=== PATIENT | female | born 1990 | race African-American/Black ===

== ENCOUNTER 2018-02-23 08:56 | Inpatient (IN) ==
[2018-02-23] MEDS ORDERED: Naloxone 0.4 MG/ML INJ IVP PRN (09:49)
[2018-02-23] MEDS ORDERED: *HR* Nalbuphine 10 MG/ML AMPUL IVP PRN (09:49)
[2018-02-23] MEDS ORDERED: Famotidine 20 MG/2 ML VIAL IVP PRN (09:49)
[2018-02-23] MEDS ORDERED: miSOPROStol 25 MCG TABLET PO PRN (10:51)
[2018-02-23 11:23] LABS: Basophils % 0.1 %; Eosinophils # 0.1 K/mcL (0.0-0.6); Eosinophils % 0.7 %; Hematocrit 36.5 % (35.3-44.9); Hemoglobin 12.3 g/dL (11.5-15.4); Immature Granulocytes % 0.6 % (0-4); Lymphocytes # 1.9 K/mcL (0.6-4.6); Lymphocytes % 21.3 %; Mean Corpuscular HGB Conc 33.7 g/dL (31.6-35.5); Mean Corpuscular Hemoglobin 29.7 pg (28.0-33.3); Mean Corpuscular Volume 88.2 fL (83.0-100.0); Mean Platelet Volume 9.7 fL (9.4-12.4); Monocytes # 0.6 K/mcL (0.0-1.3); Monocytes % 6.2 %; Neutrophils # 6.4 K/mcL (1.6-8.9); Platelet Count 259 K/mcL (140-400); Red Blood Count 4.14 M/mcL (3.82-4.97); Red Cell Distribution Width 13.9 % (11.5-14.5); Segmented Neutrophils % 71.1 %
[2018-02-23 11:47] LABS: Amphetamine Screen,Urine Negative ng/mL (Cutoff=1000); Barbiturate Screen,Urine Negative ng/mL (Cutoff=200); Benzodiazepines Screen,Urine Negative ng/mL (Cutoff=200); Cannabinoid Screen,Urine Negative ng/mL (Cutoff = 50); Cocaine Screen,Urine Negative ng/mL (Cutoff= 300); Opiate Screen,Urine Negative ng/mL (Cutoff=300); Phencyclidine Screen,Urine Negative ng/mL (Cutoff=25)
--- NOTE | 2018-02-23 12:08 | OB/GYN History & Physical ---
Date of Encounter: 02/23/18 Time of Encounter: 12:05 Assessment and Plan (1) 39 weeks gestation of Current visit: Yes Status: Acute Term IUP SROM GBS negative Cytotec Nubain/Epidural per patient request Anticipate vaginal delivery Desires tubal ligation (2) Spontaneous rupture of amniotic membranes Current visit: Yes Status: Acute History of Present Illness Chief complaint: Leaking fluid HPI: Ms. Cisneros is a 27 year old female at 39 weeks 0 days gestation admitted labor and delivery for SROM at 0700. Denies vaginal bleeding, states baby moving well. She is having mild, irregular ctxs. 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 Currently taking Acyclovir to suppress HSV, no outbreak at present time. Denies JOSHI, visual disturbances and epigastric pain. Past OB history #1 at 40 weeks, 7 pounds; #2 SAB; # 3preterm at 35 weeks 5 pounds; #4 Ectopic; #5 IAB; #6 current with no complications per patient. Labs: O positive GBS negative HIV negative RPR Non reactive HBsAg negative Rubella immune Varicella immune Past Med Surg Social Fam HX - Past Medical History Medical history: other Additional medical history: ulcerative colitis Psychiatric history: no psych history - Past Surgical History Surgical History: non-contributory Additional surgical history: eye surgery as a child - Social History Smoking Status: Never smoker Smokeless Tobacco Status: No Alcohol use: none Drug use: none - Family History Mother Name: Kaela Noble Family Respiratory Disorders: Yes ([facility]) Obstetrical History - Pregnancies : 6 Para: 1 Term: 1 : 1 Ab's: 3 Livin Medications and Allergies Mesalamine [Lialda] 1.2 gm PO DAILY 09/24/16 [History] Vit #108/Iron/FA [ One Tablet] 1 each PO DAILY 09/24/16 [ History] Acyclovir [Zovirax] 400 mg PO DAILY 02/23/18 [History] 3 Allergy/AdvReac Type Severity Reaction Status Date / Time No Known Allergies Allergy Verified 12/13/17 14:02 Exam - Constitutional Constitutional: well developed, well nourished, no acute distress - HEENT HEENT: Normocephaly - Neck Neck exam: full ROM, normal inspection, supple - Lungs Respiratory exam: CTAB - Cardiovascular Cardiovascular exam: RRR - Abdomen Abdomen: Present: bowel sounds normal, gravid, non tender - Extremities Extremities exam: full ROM, normal inspection, radial pulses palpable and symmetrical Deep Tendon Reflex Grade: 2+ Normal - Cervix Dilation: 2 (2-3 cm) Effacement: 70 Station: -1 (VE per RN. Grossly ruptured, clear fluid.) Results Result Diagrams: 02/23/18 10:32 All other labs normal. - VTE Reasons for not Prescribing Prophylaxis: Treatment not Indicated - Low risk for VTE
[2018-02-23] MEDS ORDERED: Ringers Solution, Lactated 1,000 ML ONE ×4 (12:12→20:31)
[2018-02-23] MEDS ORDERED: Oxytocin 20 units/ LR 1000 mL 20 UNIT/1,000 ML BAG IVC SCH (16:00)
[2018-02-23] MEDS ORDERED: Oxytocin 20 units/ LR 1000 mL 20 UNIT/1,000 ML BAG IVC ONE (16:12)
--- NOTE | 2018-02-23 17:05 | Anesthesia Evaluation PreOp ---
Date of Encounter: 02/23/18 Time of Encounter: 17:03 - Past History Planned Operation: mireya Cardiac History: Denies any Significant Hx Pulmonary History: Denies Any Significant HX [employer] History: Denies Any Significant HX Other Medical History: Other (HSV, ulcerative colitis) Anesthesia History: No Prior Anesthetic Complications, Past Anesthesia (eye surgery) : Yes (39 weeks, ) Alcohol Use: none Drug use: none Medications and Allergies Mesalamine [Lialda] 1.2 gm PO DAILY 09/24/16 [History] Vit #108/Iron/FA [ One Tablet] 1 each PO DAILY 09/24/16 [ History] Acyclovir [Zovirax] 400 mg PO DAILY 02/23/18 [History] 3 Allergy/AdvReac Type Severity Reaction Status Date / Time No Known Allergies Allergy Verified 12/13/17 14:02 - Meds/Allergy Pre-op Review Medications Reviewed: Yes Allergies Reviewed: Yes Beta Blockers on Current Med List: No Anesthesia Results - Labs 02/23/18 10:32 Anesthesia Exam O2 Sat Height 1.5 m Weight 73.6 kg bp 111/62 Height: 59 Weight: 73 - HEENT Pupil (Motor): Pupils equal Mallampati: II Teeth: Normal Oral Opening: Greater than 3 - [employer] LOC: Oriented [employer] Motor: Normal RUE, Normal LUE, Normal RLE, Normal LLE, Normal Face [employer] Sensory: Normal: RUE, LUE, RLE, LLE, Face - Cardiac Rhythm: Regular Murmur: None JVD: No Carotid Bruit: No - Pulmonary Breath Sounds: bilateral Clear Respiratory Effort: Symmetrical Anesthesia Assess/Plan ASA Score: 2 Modified [place] Scale for Level of Consciousness: Cooperative, oriented, and tranquil Anesthetic Plan: Regional
[2018-02-23] MEDS ORDERED: *HR* FentaNYL (PF) 100 MCG/2 ML VIAL EP ONE (17:49)
[2018-02-23] MEDS ORDERED: EPHEDrine 50 MG/ML VIAL IVP PRN (17:49)
[2018-02-23] MEDS ORDERED: *HR* Ropivacaine/PF 0.2% 20 ML VIAL EP ONE (17:49)
[2018-02-23] MEDS ORDERED: Epidural Premix (fent/bupiv) 110 ML EP ONE (17:55)
[2018-02-23] MEDS ORDERED: Epidural Premix (fent/bupiv) 110 ML EP SCH (18:00)
[2018-02-23] MEDS ORDERED: *HR* Propofol 200 MG/20 ML VIAL IVP ONE (19:08)
[2018-02-23] MEDS ORDERED: *HR* FentaNYL (PF) 100 MCG/2 ML VIAL ONE (19:08)
[2018-02-23] MEDS ORDERED: *HR* Midazolam HCl 2 MG/2 ML VIAL ONE (19:08)
[2018-02-23] MEDS ORDERED: *HR* Oxytocin 10 UNIT/ML VIAL IM ONE (19:08)
[2018-02-23] MEDS ORDERED: *HR* Promethazine 25 MG/ML VIAL IVP PRN (19:26)
[2018-02-23] MEDS ORDERED: *HR* OxyCODONE Immed Rel 5 MG TABLET PO PRN (19:26)
[2018-02-23] MEDS ORDERED: Morphine Sulfate/PF 5mg/10mL Vial ONE (19:30)
--- NOTE | 2018-02-23 19:49 | OB/GYN Procedure Note ---
Section - Date of procedure: 02/23/18 Preop diagnosis: category 3 FHT tracing Post-op diagnosis: same Procedure: section, primary low transverse Surgeon: Jai Johnson Blood Loss: 100 Was there an operations and intelligence assistant present: Yes Voice Network Administrator: Chad Monsivais Carbonizer: Jimmy Ye Anesthesia Type: Epidural section complications: none Disposition: L&D Recovery Room Specimens: Placenta, Cord blood - (s) Infant A Delivery Date: 02/23/18 Infant Delivery Time: 18:55 Presentation: vertex Position: OA Gender: Female Viability: Viable Pounds: 5 Ounces: 15 Gram Weight: 2700 kg at 1 minute: 8 at 5 minutes: 9 - Narrative Narrative: The patient was brought to the operating room with satisfactory epidural anesthesia. The abdomen was prepped with betadine and then draped in sterile fashion. A Pfannenstiel incision was made and carried sharply down to the level of the fascia. The fascia was incised transversely and dissected away from the underlying rectus muscles. With blunt dissection, the rectus muscles were divided in midline. The peritoneum was entered bluntly and the uterus was revealed. A bladder retractor was placed to protect the bladder. A transverse incision was made across the lower uterine segment. The incision was manually extended. The 's head was pulled up and delivered easily as were the shoulders and body. The mouth and oropharynx were suctioned. The cord was clamped and cut. The infant was passed off to the waiting nurses in satisfactory condition. APGARS 8/9. The placenta was extracted completely and found to be intact. The uterus was explored and found to be empty. The uterus was delivered through the abdominal incision and massaged vigorously. Intravenous Pitocin was administered. A running locking stitch of 0 Vicryl was used to close the incision with adequate hemostasis. Secondary running locking stitch was placed for extra strength to the wound. The uterus was returned to its proper anatomic position in the abdomen. The fascia was closed with a simple running stitch of 0 vicryl. The skin was closed with running subcuticular stitch of 4-0 vicryl. The patient was brought to the recovery room in satisfactory condition. There were no complications. There was 100 cc of blood loss. All sponge, needle, and instrument counts were reported to be correct.
[2018-02-23] MEDS ORDERED: Ketorolac 30 MG/ML VIAL IVP ONE (22:54)
[2018-02-23] MEDS: Piperacillin/Tazobactam 3.375 GM in 0.9 % Sodium Chloride Mini Bag 100 ML IVPB SCH (23:10)
[2018-02-24] MEDS ORDERED: Ondansetron 4 MG/2 ML VIAL IVP PRN (04:38)
[2018-02-24] MEDS ORDERED: Sennosides 8.6 MG TABLET PO PRN (04:38)
[2018-02-24] MEDS ORDERED: Ibuprofen 600 MG TABLET PO PRN (04:38)
[2018-02-24] MEDS ORDERED: Metoclopramide 10 MG/2 ML VIAL IVP PRN (04:38)
[2018-02-24] MEDS ORDERED: Oxytocin 20 units/ LR 1000 mL 20 UNIT/1,000 ML BAG IVC SCH (04:45)
[2018-02-24] MEDS: *HR* OxyCODONE/APAP 5/325 TABLET PO PRN ×5 (04:59→22:12)
[2018-02-24 05:48] LABS: Hematocrit 32.8 % (35.3-44.9); Mean Corpuscular HGB Conc 33.5 g/dL (31.6-35.5); Mean Corpuscular Hemoglobin 29.6 pg (28.0-33.3); Mean Corpuscular Volume 88.2 fL (83.0-100.0); Mean Platelet Volume 9.6 fL (9.4-12.4); Platelet Count 231 K/mcL (140-400); Red Blood Count 3.72 M/mcL (3.82-4.97); Red Cell Distribution Width 14.1 % (11.5-14.5)
[2018-02-24] MEDS: Prenatal Vit/FA 1 EACH TABLET PO SCH (09:30)
[2018-02-24] MEDS: Piperacillin/Tazobactam 3.375 GM in 0.9 % Sodium Chloride Mini Bag 100 ML IVPB SCH ×2 (09:32→20:04)
--- NOTE | 2018-02-24 13:54 | OB/GYN Progress Note ---
Date of Encounter: 02/24/18 Time of Encounter: 13:52 - Assessment and Plan (1) Status post delivery Current Visit: Yes Status: Acute Stable POD#1, Continue current management Anticipate discharge tomorrow. Subjective - Subjective Patient reports: voiding normally, pain well controlled, ambulating normally : doing well, nursing well Objective - Vital Signs Latest vital signs: Vital Signs Temp Pulse Pulse Resp BP Pulse Ox 02/24/18 11:30 98.1 F 88 16 100/64 97 02/24/18 07:30 98.1 F 96 16 94/62 02/24/18 04:00 98.1 F 84 84 14 104/67 96 02/24/18 01:20 98.2 F 93 14 106/70 97 02/24/18 00:20 98.4 F 89 16 105/67 98 02/23/18 23:10 98.5 F 102 16 100/67 97 02/23/18 22:50 98.7 F 100 16 101/66 97 02/23/18 22:20 98.5 F 89 16 97/61 97 Intake and Output 02/23/18 02/24/18 02/24/18 23:59 07:59 15:59 Intake Total 200 / 200 100 / 100 120 / 120 Output Total 1050 / 1050 350 / 350 200 / 200 Balance -850 / -850 -250 / -250 -80 / -80 Intake: IV Fluids 100 / 100 Zosyn 3.375 GM In 0.9 % Sodium 100 / 100 Chloride (Mini-Bag +) 100 ML @ 25 mls/hr IVPB Q8HR [facility] Rx#: [id number] Oral 120 / 120 Other 200 / 200 Output: Urine 200 / 200 Catheter 1050 / 1050 350 / 350 Other: Meal Breakfast Weight 70.2 kg Patient Weight 02/24/18 23:59 Weight 70.2 kg - Exam Lungs: bilateral: normal Chest: Normal S1, Normal S2 Extremities: Present: normal Abdomen: Present: normal appearance, soft Incision: Present: dressed Uterus: Present: firm (at U) - Labs Labs: Laboratory Results - last 24 hr 02/24/18 05:27 WBC 10.9 RBC 3.72 L Hgb 11.0 L Hct 32.8 L MCV 88.2 MCH 29.6 MCHC 33.5 RDW 14.1 Plt Count 231 MPV 9.6
[2018-02-24] MEDS: Simethicone 80 MG TAB.CHEW PO PRN (18:36)
[2018-02-25] MEDS: Simethicone 80 MG TAB.CHEW PO PRN (00:31)
[2018-02-25 05:46] LABS: Hematocrit 30.4 % (35.3-44.9); Hemoglobin 10.1 g/dL (11.5-15.4); Mean Corpuscular HGB Conc 33.2 g/dL (31.6-35.5); Mean Corpuscular Hemoglobin 29.7 pg (28.0-33.3); Mean Corpuscular Volume 89.4 fL (83.0-100.0); Mean Platelet Volume 9.6 fL (9.4-12.4); Platelet Count 244 K/mcL (140-400); Red Cell Distribution Width 14.5 % (11.5-14.5)
[2018-02-25] MEDS: *HR* OxyCODONE/APAP 5/325 TABLET PO PRN ×2 (06:49→10:39)
[2018-02-25 07:52] VITALS: BP 111/73
[2018-02-25] MEDS: Prenatal Vit/FA 1 EACH TABLET PO SCH (08:54)
--- NOTE | 2018-02-25 08:55 | Discharge Summary ---
Date of Encounter: 02/25/18 Time of Encounter: 08:52 - Discharge Diagnosis (1) Status post delivery Priority: Primary Status: Acute Comments: Continue postop/ care discharge home today follow up with Dr. Stiles in 2 weeks (2) Iron deficiency anemia Priority: Secondary Status: Acute Comments: Continue ferrous sulfate Qualifiers: Iron deficiency anemia type: other iron deficiency Qualified Code(s): D50.8 - Other iron deficiency anemias - Discharge Medications Prescriptions: Docusate [Colace] 100 mg PO BID #30 capsule OxyCODONE/APAP 5/325 [Percocet 5/325 MG] 1 each PO Q4H PRN 5 Days #30 tablet PRN Reason: Moderate pain 4-6 Home Medications: Mesalamine [Lialda] 1.2 gm PO DAILY 09/24/16 [History] Vit #108/Iron/FA [ One Tablet] 1 each PO DAILY 09/24/16 [ History] Docusate [Colace] 100 mg PO BID #30 capsule 02/25/18 [Rx] Ferrous Sulfate 325 mg PO DAILY tablet 02/25/18 [Rx] OxyCODONE/APAP 5/325 [Percocet 5/325 MG] 1 each PO Q4H PRN 5 Days #30 tablet [Rx] Simethicone [Gas-X] 80 mg PO TID PRN tab.chew 02/25/18 [Rx] Allergies/Adverse Reactions: 3 Allergy/AdvReac Type Severity Reaction Status Date / Time No Known Allergies Allergy Verified 12/13/17 14:02 Data Procedures and tests throughout hospitalization: Laboratory Tests 02/23/18 02/23/18 02/24/18 09:30 10:32 05:27 WBC 8.9 10.9 RBC 4.14 3.72 L Hgb 12.3 11.0 L Hct 36.5 32.8 L MCV 88.2 88.2 MCH 29.7 29.6 MCHC 33.7 33.5 RDW 13.9 14.1 Plt Count 259 231 MPV 9.7 9.6 Immature Gran % 0.6 Seg Neutrophils % 71.1 Lymphocytes % 21.3 Monocytes % 6.2 Eosinophils % 0.7 Basophils % 0.1 Neutrophils # 6.4 Lymphocytes # 1.9 Monocytes # 0.6 Eosinophils # 0.1 Basophils # 0.0 Urine Opiates Screen Negative Ur Barbiturates Screen Negative Ur Phencyclidine Scrn Negative Ur Amphetamines Screen Negative U Benzodiazepines Scrn Negative Urine Cocaine Screen Negative U Marijuana (THC) Screen Negative 02/25/18 05:25 WBC 11.1 RBC 3.40 L Hgb 10.1 L Hct 30.4 L MCV 89.4 MCH 29.7 MCHC 33.2 RDW 14.5 Plt Count 244 MPV 9.6 Immature Gran % Seg Neutrophils % Lymphocytes % Monocytes % Eosinophils % Basophils % Neutrophils # Lymphocytes # Monocytes # Eosinophils # Basophils # Urine Opiates Screen Ur Barbiturates Screen Ur Phencyclidine Scrn Ur Amphetamines Screen U Benzodiazepines Scrn Urine Cocaine Screen U Marijuana (THC) Screen Labs on day of discharge: Labs from last 24 hours 02/25/18 05:25 WBC 11.1 RBC 3.40 L Hgb 10.1 L Hct 30.4 L MCV 89.4 MCH 29.7 MCHC 33.2 RDW 14.5 Plt Count 244 MPV 9.6 Date of admission: 02/23/18 08:56 Primary care physician: Dk Caruso MD Discharging clinician: Leah Ortiz Anticipated date of discharge: 02/25/18 - Patient Status Disposition: Home, Self-Care Condition: Good Functional capacity at discharge: independent ambulation - Discharge Instructions Follow Up With: Dk Caruso MD [Primary Care Provider] - Jai Stiles MD [Partnered Physician] - - Diet and Activity Activity: increase activity as tolerated Diet: regular diet Hospital Course Procedures: OAR[facility] report reviewed by MARTIR Millan Delivery: section Episiotomy: none Laceration: none Other procedures: none complications: none Discharge diagnosis: IUP at term delivered [place] baby: female (bottle feeding) Time Attestation: Total time spent providing and/or coordinating discharge services: Time Spent: Less than 30 minutes - VTE Reasons for not Prescribing Prophylaxis: Treatment not Indicated - Low risk for VTE Documentation of Mechanical Device: Intermittent pneumatic compression device Exam - Constitutional Vitals: Temp Pulse Resp BP Pulse Ox 98.2 F 106 16 111/73 96 02/25/18 07:52 02/25/18 07:52 02/25/18 07:52 02/25/18 07:52 02/25/18 07:52 General appearance IM: A&O X 3, pleasant, answers questions appropriately - Respiratory Respiratory exam: Present: CTAB - Cardiovascular Cardiovascular exam IM: Present: RRR, +S1, +S2 - GI/Abdominal GI/Abdominal exam IM: normal bowel sounds Incision: normal, dry, intact, other (dressing removed. Steri strips present) - Uterine Tone: Firm Uterus Position: 1 Finger Below Umbilicus, Midline - Extremities Exam Extremities exam IM: Present: full ROM, normal capillary refill, normal inspection - Neurological Exam Neurological exam: alert, oriented X3, reflexes normal
== END 2018-02-25 11:40 | disposition home or self-care (01) | DRG 540 ==
LOC: 1NENULAB → OBSVTOIN 08:56 → 1NENUOBS 02-24 00:50
PROVIDERS: ADMIT Student in an Organized Health Care Education/Training Program; ATTEND Student in an Organized Health Care Education/Training Program